=== PATIENT | female | born 1975 | race African-American/Black ===

== ENCOUNTER 2017-10-27 00:29 | Emergency (ER) | payer OTHER ==
[2017-10-27 00:45] VITALS: BP 121/88; PULSE 94; TEMP 98.6; BMI 29.5
--- NOTE | 2017-10-27 00:48 | PDOC ---
History of Present Illness - General Chief Complaint: Pain, Acute Stated Complaint: LLQ PAIN/ VAGINAL SPOTTING X 3 DAYS Time Seen by Provider: 10/27/17 00:48 - History of Present Illness Initial Comments: This 42-year-old woman with a history of ectopic pregnancies (3 and subsequent salpingectomy,) presents with 3 day history of left lower quadrant/left pelvic pain. She also has had scant brownish vaginal discharge for the last 10 days. Patient states that what she thought was menstrual bleeding began approximately 10 days ago. This was somewhat late in her menstrual cycle; discharge has been scant as compared to her usual menstrual cycle. Also, discharge has been brownish colored. Left-sided pain began 3 days ago and has been dull and somewhat progressively more severe. She has had no fever/chills, vomiting or change in bowel habits. She normally has some mild nausea during her menstrual cycle. She experienced mild queasiness last week.Patient's past medical history significant for bilateral salpingectomy: She had 3 previous ectopic pregnancies. These were treated surgically with partial salpingectomy on the right followed by completion salpingectomy after second ectopic . She then had a complete salpingectomy of the left after her third ectopic . She states these were all more than 10 years ago and she has had no subsequent pregnancies. Patient also has a history of ovarian cysts; she states that she has had "grapefruit size" cysts that were removed surgically. No previous history of diverticulosis/diverticulitis or renal stones. Past History - Past Medical History Allergies/Adverse Reactions: Allergies Allergy/AdvReac Type Severity Reaction Status Date / Time No Known Allergies Allergy Verified 10/27/17 00:47 Home Medications: Ambulatory Orders NK [No Known Home Medication] 10/27/17 COPD: No Other medical history: DENIES - Suicide/Smoking/Psychosocial Hx Smoking History: Current some day smoker Have you smoked in the past 12 months: Yes Number of Cigarettes Smoked Daily: 1 Information on smoking cessation initiated: Yes 'Breaking Loose' booklet given: 10/27/17 Hx Alcohol Use: Yes (TWICE A WEEK) Drug/Substance Use Hx: No Substance Use Type: None Review of Systems - Review of Systems Able to Perform ROS?: Yes Comments:: 12 point review of systems is negative except for what is noted in the history of present illness *Physical Exam - Vital Signs Last Vital Signs Temp Pulse Resp BP Pulse Ox 98.6 F 94 H 16 121/88 97 10/27/17 00:41 10/27/17 00:41 10/27/17 00:41 10/27/17 00:41 10/27/17 00:41 - Physical Exam Comments: GENERAL: Adult female, alert and oriented 3, in no acute distress LUNGS: Breath sounds equal, clear to auscultation bilaterally. No wheezes, and no crackles. HEART:Regular rate and rhythm, normal S1 and S2 without murmur, rub or gallop. ABDOMEN:.normal bowel sounds; mild left lower quadrant tenderness without guarding/rebound or masses Pelvic-normal female external genitalia Moderate amount brown discharge vaginal vault No vaginal foreign body; cervix appears normal with no significant cervical motion tenderness Moderate tenderness to palpation left ovary; no tenderness/masses ;EXTREMITIES: Normal range of motion, no edema. No clubbing or cyanosis. No erythema, or tenderness. NEUROLOGICAL: Cranial nerves II through XII grossly intact. Normal speech. No focal neurological deficits. MUSCULOSKELETAL: Back non-tender to palpation, no CVA tenderness SKIN: Warm, Dry, normal turgor, no rashes or lesions noted. Progress Note - Progress Note Progress Note: Pelvic ultrasound performed to rule out ovarian torsion on the left side and any other acute abnormality involving ovary, given patient's previous history of ovarian cysts. Good blood flow demonstrated in both ovaries. 2.5 cm x 2.5 cm left ovarian cyst present but no evidence of free fluid Results discussed with the patient. Chlamydia/GC culture and urine culture sent. No clear evidence of acute infectious process with urinalysis being equivocal. The patient agrees to treatment her left lower quadrant/left pelvic pain expectantly with use of nonsteroidal anti-inflammatories and local warmth. Patient should follow-up with ruffling machine operator within the next 48 hours. She should return to ER if she has worsening pain or experiences fever/vomiting *DC/Admit/Observation/Transfer Diagnosis at time of Disposition: Pelvic pain - Discharge Dispostion Disposition: HOME Condition at time of disposition: Stable - Referrals - Patient Instructions Printed Discharge Instructions: DI for Pelvic Pain Additional Instructions: Ibuprofen/naproxen/acetaminophen as needed for pain Local warmth to the area as needed Follow-up with your ruffling machine operator within the next 2-3 days Return if you have worsening pain or experience fever/vomiting - Post Discharge Activity
[2017-10-27 01:15] LABS: URINE APPEARANCE SLCLOUDY; URINE BILIRUBIN NEGATIVE (NEGATIVE); URINE BLOOD 3+ (NEGATIVE); URINE COLOR LTYELLOW; URINE GLUCOSE (UA) NEGATIVE (NEGATIVE); URINE KETONE NEGATIVE (NEGATIVE); URINE NITRITE NEGATIVE (NEGATIVE); URINE PROTEIN NEGATIVE (NEGATIVE); URINE UROBILINOGEN NEGATIVE mg/dL (0.2-1.0)
[2017-10-27 01:28] LABS: URINE BACTERIA RARE /hpf (NONE SEEN); URINE MUCUS RARE; URINE RBC 33 /hpf (0-3); URINE WBC 2 /hpf (3-5)
[2017-10-27 12:57] LABS: URINE LEUK ESTERASE Negative (NEGATIVE)
== END 2017-10-27 03:09 | disposition home or self-care (01) ==
LOC: FER 00:29
DX: R10.2 Pelvic and perineal pain (principal); Z72.0 Tobacco use
CPT/HCPCS: 36415; 76856-TC; 81003; 81015; 84703; 87086; 87491; 87591; 99281-25

== ENCOUNTER 2018-02-26 19:11 | Emergency (ER) | payer OTHER ==
[2018-02-26 19:16] VITALS: BP 106/72; PULSE 90; TEMP 98.5; BMI 32.5
--- NOTE | 2018-02-26 19:38 | PDOC ---
History of Present Illness - General History Source: Patient Exam Limitations: No Limitations - History of Present Illness Initial Comments: 02/26/18 20:02 The patient is a 43 year old female with past medical history of psoriasis presents to the ED with chest pain for 3 hours. Patient states that pain began with a 10/10 severity and has lowered to 6/10. Patient states pain is worsened with deep breath. She also reports shortness of breath with chills. Patient states she was standing when pain began and felt a numbness on her left arm that radiated to her left shoulder. Patient states she took Advil with little relief. She states she smokes 5 cigarettes a month for 5 years and intakes alcohol socially. Patient denies any abdominal pain, nausea, vomiting, allergies , drug intake, or surgeries. Patient also denies recent travel, and intake of oral contraceptive. Patient has history of ectopic and family history of Hypertension <Cliff Garces - Last Filed: 02/26/18 20:22> <Miki García - Last Filed: 02/27/18 01:48> - General Chief Complaint: Chest Pain Stated Complaint: CHEST PAIN Time Seen by Provider: 02/26/18 19:15 Past History <Cliff Garces - Last Filed: 02/26/18 20:22> - Past Medical History COPD: No Other medical history: PSORIASIS-BEING WORKED UP FOR PSORIATIC ARTHRITIS - Suicide/Smoking/Psychosocial Hx Smoking History: Current some day smoker Have you smoked in the past 12 months: Yes Number of Cigarettes Smoked Daily: 1 Information on smoking cessation initiated: Yes 'Breaking Loose' booklet given: 10/27/17 Hx Alcohol Use: Yes (TWICE A WEEK) Drug/Substance Use Hx: No Substance Use Type: None <Miki García - Last Filed: 02/27/18 01:48> - Past Medical History Allergies/Adverse Reactions: Allergies Allergy/AdvReac Type Severity Reaction Status Date / Time No Known Allergies Allergy Verified 10/27/17 00:47 Home Medications: Ambulatory Orders NK [No Known Home Medication] 10/27/17 Review of Systems - Review of Systems Able to Perform ROS?: Yes Comments:: GENERAL/CONSTITUTIONAL: +chills .No fever . No weakness. HEAD, EYES, EARS, NOSE AND THROAT: No change in vision. No ear pain or discharge. No sore throat. CARDIOVASCULAR: + chest pain, shortness of breath. RESPIRATORY: No cough, wheezing, or hemoptysis. GASTROINTESTINAL: No nausea, vomiting, diarrhea or constipation. GENITOURINARY: No dysuria, frequency, or change in urination. MUSCULOSKELETAL: No joint or muscle swelling or pain. No neck or back pain. SKIN: No rash NEUROLOGIC: +Numbness in upper extremities. No headache, vertigo, loss of consciousness. ENDOCRINE: No increased thirst. No abnormal weight change. HEMATOLOGIC/LYMPHATIC: No anemia, easy bleeding, or history of blood clots. ALLERGIC/IMMUNOLOGIC: No hives or skin allergy. 02/26/18 20:12 <Cliff Garces - Last Filed: 02/26/18 20:22> *Physical Exam - Vital Signs Last Vital Signs Temp Pulse Resp BP Pulse Ox 98.5 F 90 16 106/72 100 02/26/18 19:12 02/26/18 19:12 02/26/18 19:12 02/26/18 19:12 02/26/18 19:12 - Physical Exam Comments: 02/26/18 20:13 GENERAL: Awake, alert, and fully oriented, in no acute distress HEAD: No signs of trauma EYES: PERRLA, EOMI, sclera anicteric, conjunctiva clear ENT: Auricles normal inspection, hearing grossly normal, nares patent, oropharynx clear without exudates. Moist mucosa NECK: Nontender, no stepoffs, Normal ROM, supple, no lymphadenopathy, JVD, or masses LUNGS: + soreness on palpation of left chest. Breath sounds equal, clear to auscultation bilaterally. No wheezes, and no crackles HEART: Regular rate and rhythm, normal S1 and S2, no murmurs, rubs or gallops ABDOMEN: Soft, nontender, normoactive bowel sounds. No guarding, no rebound. No masses EXTREMITIES: Normal range of motion, no edema. No clubbing or cyanosis. No cords, erythema, or tenderness NEUROLOGICAL: Cranial nerves II through XII intact. 5/5 strength and sensation in all extremities, Normal speech, normal gait, normal cerebellar function SKIN: Warm, Dry, normal turgor, no rashes or lesions noted. 02/26/18 20:22 <Cliff Garces - Last Filed: 02/26/18 20:22> - Vital Signs Last Vital Signs Temp Pulse Resp BP Pulse Ox 98.5 F 90 16 106/72 100 02/26/18 19:12 02/26/18 19:12 02/26/18 19:12 02/26/18 19:12 02/26/18 19:12 <Miki García - Last Filed: 02/27/18 01:48> Medical Decision Making - Medical Decision Making 02/27/18 01:48 perc- atypical cp ? arrhytmis will fu with cards for holter <Miki García - Last Filed: 02/27/18 01:48> *DC/Admit/Observation/Transfer - Attestations Scribe Attestion: 02/26/18 20:14 Documentation prepared by Cliff Garces, acting as medical assistant internal medicine for Miki García MD <Cliff Garces - Last Filed: 02/26/18 20:22> <Miki García - Last Filed: 02/27/18 01:48> Diagnosis at time of Disposition: Palpitations - Discharge Dispostion Disposition: HOME Condition at time of disposition: Stable - Referrals Referrals: Jay Chandler MD [Staff Physician] - - Patient Instructions Printed Discharge Instructions: DI for Palpitations - Post Discharge Activity Forms/Work/School Notes: Back to Work
--- NOTE | 2018-02-27 10:01 | EKG ---
Test Reason : Blood Pressure : / mmHG Vent. Rate : 071 BPM Atrial Rate : 071 BPM P-R Int : 118 ms QRS Dur : 078 ms QT Int : 376 ms P-R-T Axes : 019 046 028 degrees QTc Int : 408 ms NORMAL SINUS RHYTHM SEPTAL INFARCT , AGE UNDETERMINED ABNORMAL ECG NO PREVIOUS ECGS AVAILABLE Confirmed by OSCAR DE LA CRUZ MD ([id number]) on 02/27/2018 10:01:00 AM Referred By: DR HAZEL Confirmed By:OSCAR DE LA CRUZ MD
== END 2018-02-26 20:05 | disposition home or self-care (01) ==
LOC: FER 19:11
DX: R00.2 Palpitations (principal); F17.210 Nicotine dependence, cigarettes, uncomplicated; L40.9 Psoriasis, unspecified
CPT/HCPCS: 93005; 99281-25